=== PATIENT | male | born 1960 | race Caucasian/White ===

== ENCOUNTER → 2018-12-10 | Outpatient (CLI) | payer MEDICARE ==
--- NOTE | 2018-12-10 13:41 | KCIC ---
PQRS Compliance Statement: One or more of the following individualized dose reduction techniques were utilized for this examination: 1. Automated exposure control 2. Adjustment of the mA and/or kV according to patient size 3. Use of iterative reconstruction technique CT chest without contrast 12/10/2018 INDICATION: COPD, smoker of 30 years. Quit in 2016. COMPARISON: None available TECHNIQUE: Multiple axial CT images of the chest were obtained without contrast. Coronal and sagittal reformats are provided. FINDINGS: There is moderate centrilobular pulmonary emphysema. Central airways are clear. Mild bronchial wall thickening in the right lower lobe may represent bronchitis. Subpleural reticular interstitial changes are identified without honeycombing or traction bronchiectasis. Consideration may be given for chronic interstitial changes without definite of fibrosis. There is a 6 mm solid noncalcified pulmonary nodule in the posterior left lower lobe (series 6, image 40). Calcified granulomas identified in the left upper lobe measuring up to 6 mm. Thyroid gland is normal in appearance. Within the limitations of a noncontrast examination. There are no pathologically enlarged lymph nodes within the thorax. Calcified left hilar lymph nodes are identified suggestive of sequela prior granulomatous exposure. Small hiatal hernia. Heart size within normal limits. Three-vessel coronary artery vascular calculations are present. Calcifications within the spleen likely represent sequela prior granulomatous exposure. There is a left adrenal nodule measuring 2.5 x 1.4 cm (-18 Hounsfield units). This finding is most compatible with a lipid rich adrenal adenoma. There is moderate fatty atrophy of the pancreas. IMPRESSION: 1. COPD changes with moderate centrilobular pulmonary emphysema and right lower lobar bronchitis. 2. Subpleural reticular interstitial changes are identified the right lung base and may represent subsegmental atelectasis versus scarring. No focal airspace consolidation is identified to suggest superimposed pulmonary infiltrate. 3. There is no honeycombing or traction bronchiectasis. 4. 6 mm solid noncalcified pleura nodule in the medial left lower lobe. 6 month follow-up chest CT is recommended to assess stability. 5. Left adrenal lipid rich adenoma. Electronically signed by: Darlyn Thurston MD (12/10/2018 1:38 PM) [id number]
== END | disposition home or self-care (01) ==
LOC: KCIC CT 11:17
PROVIDERS: ATTEND Internal Medicine Pulmonary Disease
DX: J43.8 Other emphysema (principal); J43.9 Emphysema, unspecified; J40 Bronchitis, not specified as acute or chronic; D36.7 Benign neoplasm of other specified sites; Z87.891 Personal history of nicotine dependence
CPT/HCPCS: 71250